=== PATIENT | male | born 1965 | race Caucasian/White ===

== ENCOUNTER 2019-12-31 11:16 | Emergency (ER) | payer SELFPAY ==
[~2019-12-31] VITALS: Ht 180.3 cm; Wt 63.5 kg
[2019-12-31 11:16] VITALS: BP 153/92
--- NOTE | 2019-12-31 11:24 | NUR ---
ED Nurse Note: Pt from street and brought in by [facility] 26 fo assessment but pt came in with no symptoms and denies any pain. AAO x4 and ambulatory with non labored breathing. Pt signed AMA and Dr Martell notified.
--- NOTE | 2019-12-31 11:25 | Emergency Room Report ---
History of Present Illness General Chief Complaint: Behavioral Complaint Source: Patient, EMS Present Illness HPI The patient was brought to the emergency department via EMS. They are unclear about his chief complaints. Initially he had refused transport. Then he agreed to be evaluated at a hospital. To me he complains about being overheated. He states that after riding the ambulance he feels better. The patient has a history of psychiatric illness. During my evaluation he claimed to be contacted by an EMS agency telling him he needed report to of specific fire station. He denies suicidal or homicidal ideation. He denies recent drugs or alcohol. He states he has a mild smoker's cough. This is nonproductive. No fevers, chills, sore throat, chest pain, palpitations, nausea, vomiting, diarrhea, dysuria, abdominal pain, shortness of breath, joint pain, rashes, visual changes, dizziness, headache. Allergies: Coded Allergies: No Known Allergies (Unverified , 12/31/19) COVID-19 Screening Contact w/high risk pt: No Experienced COVID-19 symptoms?: No COVID-19 Testing performed [employer]: No Patient History Past Medical History: see triage record Social History: Reports: smoking; Denies: alcohol use - In the past, drug use Social History Narrative Homeless Reviewed Nursing Documentation: PMH: Agreed; PSxH: Agreed Review of Systems All Other Systems: negative except mentioned in HPI Physical Exam Vital Signs Date Time Temp Pulse Resp B/P (MAP) Pulse Ox O2 Delivery O2 Flow Rate FiO2 12/31/19 11:14 97.9 89 18 153/92 (112) 97 Room Air Sp02 EP Interpretation: reviewed, normal General Appearance: well appearing, no apparent distress, GCS 15 Head: normocephalic, atraumatic Eyes: bilateral eye PERRL, bilateral eye EOMI, bilateral eye Scleral Injection ENT: moist mucus membranes Neck: supple Respiratory: normal inspection Cardiovascular #1: regular rate, rhythm Cardiovascular #2: 2+ radial (R) Gastrointestinal: normal inspection, non tender, non-distended, scaphoid Musculoskeletal: back normal, normal range of motion, gait/station normal Neurologic: alert, motor strength/tone normal, oriented - No since 2019 but does not know what day of the week it is knows the president is Trump, cerebellar normal, speech normal Psychiatric: no suicidal/homicidal ideation, other - Auditory hallucinations Skin: no rash, warm/dry Medical Decision Making Homeless Attestation I, The treating physician Dr. Martell, have assessed and agrees that patient has capacity to sign out AMA. Diagnostic Impression: Primary Impression: Behavioral disorder ER Course Patient presents with several complaints but mainly with apparent auditory hallucinations. Differential includes schizophrenia, electrolyte imbalance, substance abuse, dehydration amongst others. Patient's vital signs are stable at this time. Is refusing further evaluation. I discussed with the patient his risk of if he does not get evaluated. He states he feels fine and elects not to be evaluated in the emergency department. He has no suicidal or homicidal ideation and appears motivated to take care of himself. Although he is mildly delusional his capacity to make medical decisions is adequate. Patient allowed to sign out AGAINST MEDICAL ADVICE. Paramedics were witnessed to discussion of risks and benefits of leaving the emergency department. Status: unchanged Disposition: AGAINST MEDICAL ADVICE Condition: Unknown Jacinto Martell MD Dec 31, 2019 11:25
--- NOTE | 2019-12-31 11:25 | NUR ---
ER DISCHARGE NOTE: Patient refuses to come inside ED and Dr Martell aware and pt signed AMA. No ID band/IV access and pt left with all his belongings. AAO x4 and ambulates with steady gait.
[2019-12-31 11:31] VITALS: BP 122/70
== END 2019-12-31 11:42 | disposition left against medical advice (07) ==
LOC: EDBD 11:16 → EMR 11:42
DX: F91.9 Conduct disorder, unspecified (principal); F17.200 Nicotine dependence, unspecified, uncomplicated; R05 Cough
CPT/HCPCS: 99281